=== PATIENT | male | born 1995 | race Caucasian/White ===

== ENCOUNTER 2016-10-15 23:28 | Emergency (ER) | payer OTHER ==
[~2016-10-15] VITALS: Ht 190.5 cm; Wt 114.3 kg
[~2016-10-15 23:28] MED LIST: FAMO-119 PO; NAPR-243 PO; OXYC-12 PO; PRD20T PO; PRM25T PO; TRAM-21 PO; blue goo TOP
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
--- NOTE | 2016-10-16 02:00 | ED Lower Extremity ---
General Chief Complaint: Lower Extremity Stated Complaint: RT FOOT PAIN Nursing Triage Note: Fall on wet [employer] staircase twisting right foot/ankle. Pt reports a pop sound with severe pain. Injured at 1999 Nursing Sepsis Screen: No Definite Risk Allergies and Home Medications Allergies Coded Allergies: No Known Drug Allergies (Unverified Allergy, Mild, 08/15/08) Home Medications No Active Prescriptions or Reported Meds Past Ksnfvdc-Rrmazo-Yitdro Hx Patient Social History Alcohol Use: Occasionally Uses Recreational Drug Use: No Smoking Status: Current Everyday Smoker 2nd Hand Smoke Exposure: No Recent Foreign Travel: No Contact w/Someone Who Travel: No Recent Infectious Disease Expo: No Recent Hopitalizations: No Immunizations Up To Date PED Vaccines UTD: Yes Seasonal Allergies Seasonal Allergies: No Surgeries HX Surgeries: Yes Surgeries: Orthopedic Respiratory Hx Respiratory Disorders: No Cardiovascular Hx Cardiac Disorders: No Neurological Hx Neurological Disorders: No Reproductive System Hx Reproductive Disorders: No Sexually Transmitted Disease: No Genitourinary Hx Genitourinary Disorders: No Gastrointestinal Hx Gastrointestinal Disorders: No Musculoskeletal Hx Musculoskeletal Disorders: No Endocrine Hx Endocrine Disorders: No HEENT HX ENT Disorders: No Cancer Hx Cancer: No Psychosocial Hx Psychiatric Problems: No Integumentary HX Skin/Integumentary Disorder: No Blood Transfusions Hx Blood Disorders: No Family Medical History Significant Family History: No Pertinent Family Hx Physical Exam Vital Signs Vital Sign - Last 12Hours 10/16/16 00:21 Temp 99.0 Pulse 102 Resp 20 B/P (MAP) 144/99 Pulse Ox 97 O2 Delivery Room Air Capillary Refill : Less Than 3 Seconds Progress/Results/Core Measures Results/Orders My Orders Orders - SARAH BARRERA MD Foot, Right, 3 View (10/16/16 00:41) Ankle, Right, 3 Views (10/16/16 00:41) Vital Signs/I&O Vital Sign - Last 12Hours 10/16/16 00:21 Temp 99.0 Pulse 102 Resp 20 B/P (MAP) 144/99 Pulse Ox 97 O2 Delivery Room Air Blood Pressure Mean: 114 Departure Impression Impression: Primary Impression: Right ankle sprain Qualified Codes: S93.401A - Sprain of unspecified ligament of right ankle, initial encounter Disposition: HOME, SELF-CARE Condition: Improved Departure-Patient Inst. Decision time for Depature: 01:45 Referrals: [facility] (PCP/Family) Primary Care Physician Patient Instructions: Ankle Sprain (DC) Add. Discharge Instructions: You may take ibuprofen up to 800 mg every 8 hours as needed for pain. Add Tylenol (acetaminophen) up to 1000 mg every 6 hours as needed for additional pain relief. Rest, elevation, icing in 20 minute intervals, and compression with a brace or Aguilar wrap's should help with pain and swelling. Use crutches as needed. Gradually increase weightbearing and activity as tolerated. Use a supportive brace on the right ankle for the next few months when active or engaged in activity prone to injury such as hiking, running or athletics. You may contact the emergency room in the afternoon for confirmation on the interpretation of your x-rays. All discharge instructions reviewed with patient and/or family. Voiced understanding. Scripts No Active Prescriptions or Reported Meds SARAH BARRERA MD Oct 16, 2016 02:00
[2016-10-16 02:04] VITALS: BP 144/99
--- NOTE | 2016-10-16 07:58 | Diagnostic Imaging Report ---
INDICATION: Pain and swelling. Three views were obtained. FINDINGS: The alignment is normal. The plafonds and talar dome are intact. The ankle mortise is symmetric. There is no fracture or dislocation. There is soft tissue swelling laterally. IMPRESSION: Soft tissue swelling, however, no acute fracture or dislocation Dictated by: Dictated on workstation # [id number]
--- NOTE | 2016-10-16 08:07 | Diagnostic Imaging Report ---
INDICATION: Pain FINDINGS: No fracture, dislocation or acute appearing osseous abnormality. Swelling about the ankle noted. IMPRESSION: Swelling about the ankle but no fracture demonstrated. Dictated by: Dictated on workstation # [id number]
== END 2016-10-16 02:04 | disposition home or self-care (01) ==
LOC: EDUNIT# 23:28 → ER 23:31
DX: S93.401A Sprain of unspecified ligament of right ankle, initial encounter (principal); F17.200 Nicotine dependence, unspecified, uncomplicated; X50.0XXA Overexertion from strenuous movement or load, initial encounter
CPT/HCPCS: 73610; 73630; 99283